=== PATIENT | female | born 1955 | race Caucasian/White ===

== ENCOUNTER 2021-08-06 05:01 | Emergency (ER) | payer MEDICARE, BC ==
[2021-08-06 06:56] LABS: ANION GAP 12.2 mEq/L (7-13); CHLORIDE,CL 102 mmol/L (98-107); SODIUM,NA 138 mmol/L (136-145)
--- NOTE | 2021-08-06 06:57 | EDM.PDOC ---
"<Oleg Salgado - Last Filed: 08/06/21 09:04> ED HPI GENERAL MEDICAL PROBLEM - General Chief Complaint: Abdominal Pain Stated Complaint: ABDOMINAL PAIN, HAD EXPOSURE TO COVID 07/31 Time Seen by Provider: 08/06/21 07:13 - Related Data Allergies Allergy/AdvReac Type Severity Reaction Status Date / Time naproxen Allergy Rash Verified 10/17/19 20:37 sulfamethoxazole Allergy Rash Verified 10/17/19 20:37 [From Bactrim] trimethoprim [From Bactrim] Allergy Rash Verified 10/17/19 20:37 Home Meds: Home Meds Acetaminophen [Tylenol Extra Strength] 650 mg PO Q4H PRN 10/17/19 [History] Fenofibrate Nanocrystallized [Fenofibrate] 48 mg PO BEDTIME 10/17/19 [History] Furosemide [Lasix] 20 mg PO DAILY 10/17/19 [History] Losartan Potassium [Cozaar] 50 mg PO BEDTIME 10/17/19 [History] Metoprolol Tartrate 200 mg PO BID 10/17/19 [History] Warfarin Sodium [Jantoven] 5 mg PO .BRADLEY,TU,WE,TH,SA 10/17/19 [History] cloNIDine [Catapres TTS-2] 0.2 mg TRDERM WEEKLY 10/17/19 [History] dilTIAZem HCL [Cardizem Cd] 240 mg PO DAILY 10/17/19 [History] Calcium Carbonate/Vitamin D3 [Calcium 600 mg-D3 20 Mcg Tab] 2 each PO DAILY 08/06/21 [History] Fluvastatin [Lescol XL] 40 mg PO BEDTIME 08/06/21 [History] Warfarin [Coumadin] 7.5 mg PO .MO,FR 08/06/21 [History] Course - Radiology Interpretation Free Text/Narrative:: [facility] Final Radiology Report Call: [phone] assistance Online chat: [email or web address] Name: VERENICE BARRAGAN Age: 66Years F Date: 08/06/2021 SSN: -- : [id number] Study: CT ABDOMEN PELVIS W CONT Requesting Physician: OLEG SALGADO Images: [id number] Addl Studies: Provided Clinical History: Left abdominal pain, Hx of diverticulitis Contrast: With Contrast Medium: Isovue 300 Contrast Amount: 100 mL Contrast Method: Intravenous (IV) Page 1 of 2 PROCEDURE INFORMATION: Exam: CT Abdomen And Pelvis With Contrast Exam date and time: 08/06/2021 7:31 AM Age: 66 years old Clinical indication: Abdominal pain; Localized; Left lower quadrant (llq); Additional info: Left abdominal pain, HX of diverticulitis TECHNIQUE: Imaging protocol: Computed tomography of the abdomen and pelvis with contrast. Radiation optimization: All CT scans at this facility use at least one of these dose optimization techniques: automated exposure control; mA and/or kV adjustment per patient size (includes targeted exams where dose is matched to clinical indication); or iterative reconstruction. Contrast material: ISOVUE 300; Contrast volume: 100 ml; Contrast route: INTR AVENOUS (IV); COMPARISON: No relevant prior studies available. FINDINGS: Limitations: None. Liver: Normal. Gallbladder and bile ducts: Surgical clips are present in the right upper quadrant, consistent with previous cholecystectomy. Pancreas: Normal. Spleen: Normal. Adrenal glands: Normal. Kidneys and ureters: Normal. Stomach and bowel: Severe colonic diverticulosis. In proximal sigmoid colon there is a segment where the colon wall is circumferentially thickened and there is infiltration of the adjacent pericolonic MANINDER BARRAGANNA | Final Radiology Report CONFIDENTIALITY STATEMENT This report is intended only for use by the referring physician, and only in accordance with law. If you received this in error, call [phone]. Page 2 of 2 fat. A 2.5 cm gas collection extends from the anti mesenteric aspect of the prox imal sigmoid, likely an enlarged air-filled diverticulum. Appendix: Normal. Intraperitoneal space: No pneumoperitoneum, ascites or peritoneal lesion. Vasculature: Incompletely viewed thoracic aortic dissection. Dissection extends throughout the full length of the abdominal aorta as far as the most proximal left external iliac artery. Enlargement of the aorta at the level of the aortic hiatus up to 4.8 cm but tapering to normal dimensions at the level of the renal arteries. The dissection does not involve any of the mesenteric or renal vessels. There is mild diffuse atherosclerosis. Lymph nodes: None enlarged or otherwise suspicious. Urinary bladder: Normal. Reproductive: Normal uterus and ovaries. Bones/joints: No acute fracture or suspicious osseous lesion. Soft tissues: No mass or abdominal hernia. IMPRESSION: 1. Acute uncomplicated sigmoid diverticulitis. No free fluid or abscess. 2. Thoracoabdominal aortic dissection. The thoracic portion is incompletely viewed. THIS REPORT CONTAINS FINDINGS THAT MAY BE CRITICAL TO PATIENT CARE. The findings were verbally communicated via telephone conference with SHEKHAR Nicholson at 8:40 AM CDT on 08/06/2021. The findings were acknowledged and understood. There is a known history of aortic dissection that has been previously treated and is currently under observation. Thank you for allowing us to participate in the care of your patient. Dictated and Authenticated by: Natanael Ibarra MD 08/06/2021 8:41 AM Central Time ([place] & [place]) Departure - Departure Disposition: Home, Self-Care 01 Clinical Impression: Diverticulitis - Discharge Information Instructions: Diverticulitis, [id number] Forms: ED Department Discharge Additional Instructions: RX: Cipro RX: Flagyl Do not drink alcohol on Flagyl as it will make your very sick. Use tyelnol or motrin for pain as needed. If your symptoms do not improve in ten days contact your primary care facility or return to the ER. <Gregg Nicholson C - Last Filed: 08/06/21 09:13> ED HPI GENERAL MEDICAL PROBLEM - General Source of Information: Reports: Patient History Limitations: Reports: No Limitations - History of Present Illness INITIAL COMMENTS - FREE TEXT/NARRATIVE: 66 y/o F c/o L lower abd pn that started last night about 6 pm. Pt states the pain feels the same as her last episode of diverticulitis except the pain was on the R last time. Last diverticulitis several years ago and usually resolves with antibiotics. She reports the pain is 8/10 sharp, non radiating. Still has her appendix. Gall bladder out years ago. Normal BM and urine output. Has been eating and drinking well. Denies padron, vision prob, fever, cough, chills, cp, db, back pn, diff voiding, constipation, vaginal discharge. She does not want anything for pain at this time. Onset Date: 07/29/21 Onset Time: 18:00 Location: Reports: Abdomen Quality: Reports: Sharp Severity: Severe Improves with: Reports: None Lower Abdomen Pain Score (Numeric/FACES): 8 Past Medical History HEENT History: Reports: Impaired Vision Cardiovascular History: Reports: Aneurysm, Hypertension - Past Surgical History Cardiovascular Surgical History: Reports: AAA Repair Musculoskeletal Surgical History: Reports: Knee Replacement Other Musculoskeletal Surgeries/Procedures:: Bilateral Social & Family History - Family History Family Medical History: No Pertinent Family History - Tobacco Use Tobacco Use Status *Q: Never Tobacco User - Caffeine Use Caffeine Use: Reports: Tea - Recreational Drug Use Recreational Drug Use: No ED ROS GENERAL - Review of Systems Review Of Systems: Comprehensive ROS is negative, except as noted in HPI. ED EXAM, GI/ABD - Physical Exam Exam: See Below Exam Limited By: No Limitations General Appearance: Alert, No Apparent Distress Throat/Mouth: Normal Inspection, Normal Lips, Normal Teeth, Normal Gums, Normal Oropharynx, Normal Voice, No Airway Compromise Head: Atraumatic, Normocephalic Neck: Normal Inspection, Supple, Non-Tender, Full Range of Motion Respiratory/Chest: No Respiratory Distress, Lungs Clear, Normal Breath Sounds, No Accessory Muscle Use, Chest Non-Tender Cardiovascular: Normal Peripheral Pulses, Regular Rate, Rhythm, No Edema, No Gallop, No JVD, No Murmur, No Rub GI/Abdominal Exam: Soft, Tender (L lower quad, no rebound tenderness.) (Female) Exam: Deferred Rectal (Female) Exam: Deferred Back Exam: Normal Inspection, Full Range of Motion Extremities: Normal Inspection, Normal Range of Motion, Non-Tender, Normal Capillary Refill, No Pedal Edema Neurological: Alert, Oriented, CN II-XII Intact, Normal Cognition, Normal Gait, Normal Reflexes, No Motor/Sensory Deficits Psychiatric: Normal Affect Skin Exam: Warm, Dry, Intact, Normal Color, No Rash Course - Vital Signs Last Recorded V/S: Last Vital Signs Temp 99.5 F 08/06/21 05:19 Pulse 81 08/06/21 05:19 Resp 18 08/06/21 05:19 BP 129/78 08/06/21 05:19 Pulse Ox 98 08/06/21 05:19 - Orders/Labs/Meds Orders: Active Orders 24 hr Category Date Time Status Peripheral IV Care [RC] . DIRECTED Care 08/06/21 08:00 Active Sodium Chloride 0.9% [Saline Flush] Med 08/06/21 07:59 Active 10 ml FLUSH ASDIRECTED PRN Peripheral IV Insertion Adult [OM.PC] Stat Oth 08/06/21 07:59 Ordered Medication Orders Sodium Chloride (Sodium Chloride 0.9% 10 Ml Syringe) 10 ml FLUSH ASDIRECTED PRN PRN Reason: Keep Vein Open Last Admin: 08/06/21 08:51 Dose: 10 ml Documented by: BONNY Labs: Laboratory Tests 08/06/21 08/06/21 08/06/21 Range/Units 05:08 06:27 06:27 WBC 12.0 H (5.0-10.0) 10^3/uL RBC 4.74 (4.2-5.4) 10^6/uL Hgb 14.2 (12.0-16.0) g/dL Hct 43.2 (37.0-47.0) % MCV 91.1 (80-100) fL MCH 30.0 (27.0-34.0) pg MCHC 32.9 L (33.0-35.0) g/dL Plt Count 296 D (150-450) 10^3/uL Neut % (Auto) 75.0 (42.2-75.2) % Lymph % (Auto) 14.1 L (20.5-50.1) % Lee % (Auto) 10.0 H (2-8) % Eos % (Auto) 0.8 L (1.0-3.0) % Baso % (Auto) 0.1 (0.0-1.0) % PT (9.0-12.0) SEC INR (0.9-1.2) Sodium 138 (136-145) mmol/L Potassium 4.2 (3.5-5.1) mmol/L Chloride 102 (98-107) mmol/L Carbon Dioxide 28 (21-32) mmol/L Anion Gap 12.2 (7-13) mEq/L BUN 17 (7-18) mg/dL Creatinine 0.80 (0.55-1.02) mg/dL Est Cr Clr Drug Dosing 56.45 mL/min Estimated GFR (MDRD) > 60 BUN/Creatinine Ratio 21.2 (No establ ref range) Glucose 108 H (70-99) mg/dL Lactic Acid (0.4-2.0) mmol/L Calcium 9.2 (8.5-10.1) mg/dL Total Bilirubin 0.5 (0.2-1.0) mg/dL AST 17 (15-37) U/L ALT 24 (14-59) U/L Alkaline Phosphatase 79 (46-116) U/L C-Reactive Protein 3.5 H (0.0-0.9) mg/dL Total Protein 7.4 (6.4-8.2) g/dL Albumin 2.9 L (3.4-5.0) g/dL Globulin 4.5 Albumin/Globulin Ratio 0.64 Urine Color (YELLOW) Urine Appearance (CLEAR) Urine pH (5.0-9.0) Ur Specific [place] (1.005-1.030) Urine Protein (NEGATIVE) Urine Glucose (UA) (NEGATIVE) Urine Ketones (NEGATIVE) Urine Occult Blood (NEGATIVE) Urine Nitrite (NEGATIVE) Urine Bilirubin (NEGATIVE) Urine Urobilinogen (0.2-1.0) mg/dL Ur Leukocyte Esterase (NEGATIVE) SARS-CoV-2 RNA (LIZZ) Negative (NEGATIVE) 08/06/21 08/06/21 08/06/21 Range/Units 06:27 06:27 07:02 WBC (5.0-10.0) 10^3/uL RBC (4.2-5.4) 10^6/uL Hgb (12.0-16.0) g/dL Hct (37.0-47.0) % MCV (80-100) fL MCH (27.0-34.0) pg MCHC (33.0-35.0) g/dL Plt Count (150-450) 10^3/uL Neut % (Auto) (42.2-75.2) % Lymph % (Auto) (20.5-50.1) % Lee % (Auto) (2-8) % Eos % (Auto) (1.0-3.0) % Baso % (Auto) (0.0-1.0) % PT 22.8 H (9.0-12.0) SEC INR 2.3 H (0.9-1.2) Sodium (136-145) mmol/L Potassium (3.5-5.1) mmol/L Chloride (98-107) mmol/L Carbon Dioxide (21-32) mmol/L Anion Gap (7-13) mEq/L BUN (7-18) mg/dL Creatinine (0.55-1.02) mg/dL Est Cr Clr Drug Dosing mL/min Estimated GFR (MDRD) BUN/Creatinine Ratio (No establ ref range) Glucose (70-99) mg/dL Lactic Acid 1.1 (0.4-2.0) mmol/L Calcium (8.5-10.1) mg/dL Total Bilirubin (0.2-1.0) mg/dL AST (15-37) U/L ALT (14-59) U/L Alkaline Phosphatase (46-116) U/L C-Reactive Protein (0.0-0.9) mg/dL Total Protein (6.4-8.2) g/dL Albumin (3.4-5.0) g/dL Globulin Albumin/Globulin Ratio Urine Color Light yellow (YELLOW) Urine Appearance Clear (CLEAR) Urine pH 7.0 (5.0-9.0) Ur Specific [place] 1.015 (1.005-1.030) Urine Protein Negative (NEGATIVE) Urine Glucose (UA) Negative (NEGATIVE) Urine Ketones Negative (NEGATIVE) Urine Occult Blood Small H (NEGATIVE) Urine Nitrite Negative (NEGATIVE) Urine Bilirubin Negative (NEGATIVE) Urine Urobilinogen 0.2 (0.2-1.0) mg/dL Ur Leukocyte Esterase Negative (NEGATIVE) SARS-CoV-2 RNA (LIZZ) (NEGATIVE) Meds: Medications Generic Name Dose Route Start Last Admin Trade Name Trina PRN Reason Stop Dose Admin Sodium Chloride 10 ml 08/06/21 07:59 08/06/21 08:51 Sodium Chloride 0.9% 10 Ml Syringe FLUSH 10 ml ASDIRECTED PRN Administration Keep Vein Open Discontinued Medications Generic Name Dose Route Start Last Admin Trade Name Freq PRN Reason Stop Dose Admin Piperacillin Sod/Tazobactam 100 mls @ 200 mls/hr 08/06/21 07:59 08/06/21 08:51 Sod 3.375 gm/ Sodium Chloride IV 08/06/21 08:28 200 mls/hr ONETIME ONE Administration Iopamidol 100 ml 08/06/21 07:13 08/06/21 07:44 Iopamidol 612 Mg/Ml 100 Ml Bottle IVPUSH 08/06/21 07:14 100 ml ONETIME ONE Administration Departure - Departure Time of Disposition: 09:45 Condition: Good - Discharge Information *PRESCRIPTION DRUG MONITORING PROGRAM REVIEWED*: Not Applicable *COPY OF PRESCRIPTION DRUG MONITORING REPORT IN PATIENT REVA: Not Applicable Sepsis Event Note (ED) - Evaluation Sepsis Screening Result: No Definite Risk - Focused Exam Vital Signs: Vital Signs Temp Pulse Resp BP Pulse Ox 08/06/21 05:19 99.5 F 81 18 129/78 98"
[2021-08-06] MEDS ORDERED: Iopamidol 612 MG/ML 100 ML Bottle IVPUSH ONE (07:13)
[2021-08-06] MEDS ORDERED: Sodium Chloride 0.9% 10 ML Syringe FLUSH PRN (07:59)
[2021-08-06] MEDS ORDERED: Piperacillin/Tazobactam 3.375 GM in Sodium Chloride 0.9% 100 ML IV ONE (07:59)
--- NOTE | 2021-08-06 08:41 | CT ---
PROCEDURE INFORMATION: Exam: CT Abdomen And Pelvis With Contrast Exam date and time: 08/06/2021 7:31 AM Age: 66 years old Clinical indication: Abdominal pain; Localized; Left lower quadrant (llq); Additional info: Left abdominal pain, HX of diverticulitis TECHNIQUE: Imaging protocol: Computed tomography of the abdomen and pelvis with contrast. Radiation optimization: All CT scans at this facility use at least one of these dose optimization techniques: automated exposure control; mA and/or kV adjustment per patient size (includes targeted exams where dose is matched to clinical indication); or iterative reconstruction. Contrast material: ISOVUE 300; Contrast volume: 100 ml; Contrast route: INTRAVENOUS (IV); COMPARISON: No relevant prior studies available. FINDINGS: Limitations: None. Liver: Normal. Gallbladder and bile ducts: Surgical clips are present in the right upper quadrant, consistent with previous cholecystectomy. Pancreas: Normal. Spleen: Normal. Adrenal glands: Normal. Kidneys and ureters: Normal. Stomach and bowel: Severe colonic diverticulosis. In proximal sigmoid colon there is a segment where the colon wall is circumferentially thickened and there is infiltration of the adjacent pericolonic fat. A 2.5 cm gas collection extends from the anti mesenteric aspect of the proximal sigmoid, likely an enlarged air-filled diverticulum. Appendix: Normal. Intraperitoneal space: No pneumoperitoneum, ascites or peritoneal lesion. Vasculature: Incompletely viewed thoracic aortic dissection. Dissection extends throughout the full length of the abdominal aorta as far as the most proximal left external iliac artery. Enlargement of the aorta at the level of the aortic hiatus up to 4.8 cm but tapering to normal dimensions at the level of the renal arteries. The dissection does not involve any of the mesenteric or renal vessels. There is mild diffuse atherosclerosis. Lymph nodes: None enlarged or otherwise suspicious. Urinary bladder: Normal. Reproductive: Normal uterus and ovaries. Bones/joints: No acute fracture or suspicious osseous lesion. Soft tissues: No mass or abdominal hernia. IMPRESSION: 1. Acute uncomplicated sigmoid diverticulitis. No free fluid or abscess. 2. Thoracoabdominal aortic dissection. The thoracic portion is incompletely viewed. THIS REPORT CONTAINS FINDINGS THAT MAY BE CRITICAL TO PATIENT CARE. The findings were verbally communicated via telephone conference with SHEKHAR Nicholson at 8:40 AM CDT on 08/06/2021. The findings were acknowledged and understood. There is a known history of aortic dissection that has been previously treated and is currently under observation.
== END 2021-08-06 09:38 | disposition home or self-care (01) ==
LOC: DL.ED 05:01
DX: K57.32 Diverticulitis of large intestine without perforation or abscess without bleeding (principal); I10 Essential (primary) hypertension; Z88.6 Allergy status to analgesic agent; Z88.2 Allergy status to sulfonamides; Z20.822 Contact with and (suspected) exposure to COVID-19; Z79.01 Long term (current) use of anticoagulants; Z79.899 Other long term (current) drug therapy
CPT/HCPCS: 36415; 74177; 80053; 81003; 83605; 85025; 85610; 86140; 96365; 99284; J2543; Q9967; U0002